=== PATIENT | male | born 1995 | race Asian ===

== ENCOUNTER 2018-04-16 22:35 | Emergency (ER) | payer SELFPAY ==
[~2018-04-16] VITALS: Ht 172.7 cm; Wt 75.3 kg
[2018-04-16 22:45] VITALS: Ht 172.7 cm; Wt 75.3 kg
[2018-04-17 00:05] VITALS: BP 145/71
== END 2018-04-17 00:05 | disposition home or self-care (01) ==
LOC: ED 22:35
DX: J02.9 Acute pharyngitis, unspecified (principal); Z11.8 Encounter for screening for other infectious and parasitic diseases